=== PATIENT | female | born 1990 | race Caucasian/White ===

== ENCOUNTER 2017-03-27 11:28 | Emergency (ER) | payer BC ==
[~2017-03-27] VITALS: Ht 154.9 cm; Wt 59.0 kg
[~2017-03-27 11:28] MED LIST: AMX500 PO; MEDLIST
[2017-03-27 11:38] VITALS: Ht 154.9 cm; Wt 59.0 kg
[2017-03-27] MEDS ORDERED: SODIUM CHLORIDE 0.9% 1000ML 1,000 ML IV STA (13:50)
[2017-03-27] MEDS ORDERED: KETOROLAC TROMETHAMINE 30 MG/ML VIAL IV STA (13:50)
[2017-03-27] MEDS ORDERED: ONDANSETRON INJ 2 MG/ML 2 ML VIAL IV STA (13:50)
[2017-03-27 14:38] VITALS: TEMP 37.6
[2017-03-27 14:44] LABS: INFLUENZA B ANTIGEN Neg for Influ B (NEG)
[2017-03-27 14:52] LABS: ALBUMIN 4.1 gm/dl (3.4-5.0); CALCIUM 9.3 mg/dl (8.5-10.1); CREATININE 0.81 mg/dl (0.60-1.20); POTASSIUM 3.3 mmol/L (3.5-5.1)
[2017-03-27 15:35] LABS: BASO % 0.1 %; BASO ABS # 0.01 K/uL (0-0.2); HEMATOCRIT 40.7 % (37-47); HEMOGLOBIN 14.3 g/dL (12.0-16.0); IG# 0.03 K/uL (0.00-0.02); LYMPH ABS # 0.37 K/uL (1.2-3.4); MEAN CELL VOLUME 88.1 fL (80-100); MEAN CORPUSCULAR HGB CONC 35.1 g/dl (32-36); MEAN PLATELET VOLUME 9.9 fL (7.4-10.4); MONO % 3.9 %; MONO ABS # 0.36 K/uL (0.11-0.59); NEUT % 91.7 %; NEUT ABS # 8.49 K/uL (1.4-6.5); PLATELET COUNT 235 K/uL (130-400); RED CELL DISTRIBUTION WIDTH CV 12.2 % (11.5-14.5); WHITE BLOOD COUNT 9.26 K/uL (4.8-10.8)
[2017-03-27] MEDS ORDERED: ONDA4TAB10 SL (15:46)
--- NOTE | 2017-03-27 15:47 | EMERGENCY ROOM VISIT NOTE ---
History First contact with patient: 13:42 Chief Complaint: FLU LIKE SX Stated Complaint: V/D, NUMB HANDS/LEGS DEHYDRATED History of Present Illness The patient is a 26 year old female who presents to the Emergency Room with complaints of nausea vomiting and diarrhea that started at 5 AM this morning. The patient states for the past few days she has had cold symptoms of head congestion and runny nose. She denies any cough, ear pain or sore throat. She denies any fever. The patient also states that today she feels achy all over and her low back hurts. The patient states she has vomited at least 7 times and has had 7 loose movements. She has not been able to keep anything down. The patient denies any urinary symptoms of frequency, urgency, dysuria or hematuria. The patient denies any specific abdominal pain. Review of Systems 10 system review was performed and was negative unless stated otherwise history of present illness. Past Medical/Surgical History No significant Past medical history Social History Smoking Status: Former Smoker Alcohol Use: occasionally Marital Status: Housing Status: lives with family Occupation Status: employed Current/Historical Medications No Active Prescriptions or Reported Meds Physical Exam Vital Signs Date Time Temp Pulse Resp B/P (MAP) Pulse Ox O2 Delivery O2 Flow Rate FiO2 03/27/17 14:38 37.6 99 18 112/62 98 Room Air 03/27/17 14:00 37.6 107 18 111/66 97 Room Air 03/27/17 11:38 37.3 129 18 114/81 98 Physical Exam PHYSICAL EXAM: Vital Signs were reviewed: Temperature 37.3, blood pressure 114/ 81, pulse 129, respiratory rate 18 Reviewed Nurse's notes and agree. Oxygen saturation is 98 % on room air which is normal . GENERAL: 26-year-old female appears in no acute distress. MENTAL STATUS: Alert, oriented, coherent. EARS: Canals clear. TMs good light reflex, no erythema or fluid level noted. NOSE: Nasal mucosa with moderate erythema engorgement. PHARYNX: No erythema, no edema noted. No exudate noted. Airway is adequate. NECK: Supple, non-tender. No lymphadenopathy noted. LUNGS: Clear to auscultation without wheezes rales or rhonchi. CARDIAC: Regular rate and rhythm without murmur. BACK: No CVA tenderness noted. ABDOMEN: Positive bowel sounds all 4 quadrants soft, mild tenderness palpation in the left upper quadrant otherwise nontender without organomegaly or masses. SKIN: No rashes noted. Medical Decision & Procedures Laboratory Results 03/27/17 14:09 Red Blood Count 4.62, Mean Corpuscular Volume 88.1, Mean Corpuscular Hemoglobin 31.0, Mean Corpuscular Hemoglobin Concent 35.1, Mean Platelet Volume 9.9, Neutrophils (%) (Auto) 91.7, Lymphocytes (%) (Auto) 4.0, Monocytes (%) (Auto) 3.9, Eosinophils (%) (Auto) 0.0, Basophils (%) (Auto) 0.1, Neutrophils # (Auto) 8.49, Lymphocytes # (Auto) 0.37, Monocytes # (Auto) 0.36, Eosinophils # (Auto) 0.00, Basophils # (Auto) 0.01 03/27/17 14:09 Test 03/27/17 14:00 03/27/17 14:09 03/27/17 14:34 Influenza Type A Antigen Neg for Influ A (NEG) Influenza Type B Antigen Neg for Influ B (NEG) White Blood Count 9.26 K/uL (4.8-10.8) Red Blood Count 4.62 M/uL (4.2-5.4) Hemoglobin 14.3 g/dL (12.0-16.0) Hematocrit 40.7 % (37-47) Mean Corpuscular Volume 88.1 fL (80-100) Mean Corpuscular Hemoglobin 31.0 pg (25-34) Mean Corpuscular Hemoglobin Concent 35.1 g/dl (32-36) Platelet Count 235 K/uL (130-400) Mean Platelet Volume 9.9 fL (7.4-10.4) Neutrophils (%) (Auto) 91.7 % Lymphocytes (%) (Auto) 4.0 % Monocytes (%) (Auto) 3.9 % Eosinophils (%) (Auto) 0.0 % Basophils (%) (Auto) 0.1 % Neutrophils # (Auto) 8.49 K/uL (1.4-6.5) Lymphocytes # (Auto) 0.37 K/uL (1.2-3.4) Monocytes # (Auto) 0.36 K/uL (0.11-0.59) Eosinophils # (Auto) 0.00 K/uL (0-0.5) Basophils # (Auto) 0.01 K/uL (0-0.2) RDW Standard Deviation 39.0 fL (36.4-46.3) RDW Coefficient of Variation 12.2 % (11.5-14.5) Immature Granulocyte % (Auto) 0.3 % Immature Granulocyte # (Auto) 0.03 K/uL (0.00-0.02) Anion Gap 10.0 mmol/L (3-11) Est Creatinine Clear Calc Drug Dose 88.4 ml/min Estimated GFR () 117.8 Estimated GFR (Non- 101.7 BUN/Creatinine Ratio 15.6 (10-20) Calcium Level 9.3 mg/dl (8.5-10.1) Total Bilirubin 0.7 mg/dl (0.2-1) Direct Bilirubin 0.2 mg/dl (0-0.2) Aspartate Amino Transf (AST/SGOT) 17 U/L (15-37) Alanine Aminotransferase (ALT/SGPT) 19 U/L (12-78) Alkaline Phosphatase 54 U/L (45-117) Total Protein 8.0 gm/dl (6.4-8.2) Albumin 4.1 gm/dl (3.4-5.0) Lipase 102 U/L (73-393) Urine Color DK YELLOW Urine Appearance CLOUDY (CLEAR) Urine pH 5.5 (4.5-7.5) Urine Specific [place] 1.028 (1.000-1.030) Urine Protein NEG (NEG) Urine Glucose (UA) NEG (NEG) Urine Ketones 2+ (NEG) Urine Occult Blood NEG (NEG) Urine Nitrite NEG (NEG) Urine Bilirubin NEG (NEG) Urine Urobilinogen NEG (NEG) Urine Leukocyte Esterase TRACE (NEG) Urine WBC (Auto) 1-5 /hpf (0-5) Urine RBC (Auto) 0-4 /hpf (0-4) Urine Hyaline Casts (Auto) 1-5 /lpf (0-5) Urine Epithelial Cells (Auto) >30 /lpf (0-5) Urine Bacteria (Auto) NEG (NEG) Medications Administered Medications (Trade) Dose Ordered Sig/Carlos Alberto Route Start Time Stop Time Status Last Admin Dose Admin Sodium Chloride 1,000 ml @ 999 mls/hr Q1H1M STAT IV 03/27/17 13:50 03/27/17 14:50 DC 03/27/17 14:16 999 MLS/HR Ondansetron HCl (Zofran Inj) 4 mg NOW STAT IV 03/27/17 13:50 03/27/17 13:52 DC 03/27/17 14:15 4 MG Ketorolac Tromethamine (Toradol Inj) 30 mg NOW STAT IV 03/27/17 13:50 03/27/17 13:52 DC 03/27/17 14:15 30 MG ED Course The patient was evaluated. The patient's EMR medication list were reviewed. IV access was obtained. The patient was given 1 L normal saline wide-open. She was given Zofran 4 mg IV push for nausea and Toradol 30 mg IV for pain and body aches. CBC and differential, renal profile, LFTs and lipase levels were ordered. Urinalysis was ordered. Rapid influenza was negative for influenza A and influenza B. Urinalysis was negative. Labs are reviewed. White count was normal. The patient's potassium was slightly low at 3.3. The patient was reevaluated informed of all findings. She was feeling much better. She was able to drink some water without any vomiting. The patient was discharged home in stable condition. Medical Decision Differential diagnosis include viral gastroenteritis, influenza, bronchitis [place] Drug Monitoring Program Search Results: patient reviewed within database Medication Reconcilliation Current Medication List: was personally reviewed by me Blood Pressure Screening Patient's blood pressure: Normal blood pressure Impression Primary Impression: Viral gastroenteritis Additional Impression: Hypokalemia Departure Information Dispostion Home / Self-Care Condition GOOD Prescriptions Ondasetron Odt (ZOFRAN ODT) 4 Mg Tab 4 MG SL Q6H for Nausea, #10 TAB Prov: Mellisa Brizuela, PASulema 03/27/17 Referrals No Doctor, Assigned (PCP) Forms HOME CARE DOCUMENTATION FORM, IMPORTANT VISIT INFORMATION Patient Instructions ED Diet [place], ED Nausea Vomiting, My [facility] Additional Instructions Push fluids. Follow bland diet. Advance diet slowly as tolerated. Take Zofran as needed for nausea. Eat a banana daily for 1 week. Follow-up with your family doctor in 1 week for recheck of your potassium. If symptoms worsen in the interim, return to ER. Problem Qualifiers
[2017-03-27 15:59] VITALS: BP 108/59; PULSE 98; O2SAT 96
== END 2017-03-27 16:01 | disposition home or self-care (01) ==
LOC: C.EDB 11:31
DX: A08.4 Viral intestinal infection, unspecified (principal); E87.6 Hypokalemia; Z87.891 Personal history of nicotine dependence

== ENCOUNTER 2019-09-30 13:34 | Inpatient (IN) ==
[2019-09-30] MEDS ORDERED: OXYTOCIN 30 UNITS/500 ML BAG IV PRN (15:10)
[2019-09-30] MEDS ORDERED: PENICILLIN G POTASSIUM 6 MU in DEXTROSE 5% 250 ML IV ONE (15:30)
--- NOTE | 2019-09-30 15:33 | Obstetrical Progress Note ---
Date of Service September 30, 2019 Assessment & Plan Admission and Anticipated Discharge Date Admission Date: September 30, 2019 Subjective Met pt and family Reviewed PNC SROM at 1200HRS today FHR; CAT1 Ctx; Minimal VE; 1-/-2 Bedside sono; VT
[2019-09-30 15:35] LABS: Hematocrit (blood only) 35.7 % (37-47); Hemoglobin 11.8 g/dL (12.0-16.0); Mean Corpuscular Hemoglobin 30.3 pg (25-34); Mean Corpuscular Volume 91.8 fL (80-100); Mean Platelet Volume 10.3 fL (7.4-10.4); Platelet Count 191 K/uL (130-400); RDW Coefficient of Variation 13.9 % (11.5-14.5); RDW Standard Deviation 45.8 fL (36.4-46.3); Red Blood Count 3.89 M/uL (4.2-5.4); White Blood Count 11.91 K/uL (4.8-10.8)
[2019-09-30] MEDS: LACTATED RINGER'S 1,000 ML IV PRN (15:42)
[2019-09-30 16:07] LABS: Mean Corpuscular Hgb Conc 33.1 g/dL (32-36)
[2019-09-30] MEDS: OXYTOCIN 30 UNITS/500 ML BAG IV PRN (17:29)
[2019-09-30] MEDS ORDERED: ACETAMINOPHEN 500 MG TAB PO ONE ×2 (18:03→23:14)
[2019-09-30] MEDS: PENICILLIN G POTASSIUM 3 MU in DEXTROSE 5% 100 ML IV PRN (21:02)
[2019-10-01] MEDS: PENICILLIN G POTASSIUM 3 MU in DEXTROSE 5% 100 ML IV PRN ×5 (01:18→17:35)
[2019-10-01] MEDS: LACTATED RINGER'S 1,000 ML IV PRN ×2 (02:40→12:28)
--- NOTE | 2019-10-01 07:21 | Obstetrical Progress Note ---
Date of Service October 01, 2019 Assessment & Plan Admission and Anticipated Discharge Date Admission Date: September 30, 2019 Subjective Pt doing well SROM 09/30/19 @ Noon FHR; CAT1 Ctx; 1-2mins Pit; 20My VE 2/50/-2 Unchanged Forebag palpated during exam and snagged with amnio hook Plan D/c Pitocin Feed pt Restart pitocin later Results & Data ([facility]) Vital Signs (Past 12 Hours) Vital Signs Temp Pulse Resp BP 10/01/19 05:32 75 111/62 10/01/19 05:31 36.9 C 18 10/01/19 03:51 85 126/68 10/01/19 03:50 36.6 C 10/01/19 02:40 72 121/71 10/01/19 02:05 36.8 C 18 10/01/19 00:38 84 112/66 09/30/19 23:52 36.9 C 83 18 122/72 09/30/19 22:44 86 103/64 09/30/19 21:31 36.6 C 75 99/51 L 09/30/19 20:32 94 H 112/61 09/30/19 19:35 36.9 C 80 18 108/65
[2019-10-01] MEDS: OXYTOCIN 30 UNITS/500 ML BAG IV PRN (09:21)
[2019-10-01] MEDS ORDERED: Nursing to Pharmacy Communication SCH (15:00)
[2019-10-01] MEDS ORDERED: ePHEDrine sulfate 50 MG/ML AMP ONE (18:02)
[2019-10-01] MEDS ORDERED: BUPIVACAINE 0.25% 30 ML VIAL ONE (18:03)
[2019-10-01] MEDS ORDERED: fentaNYL citrate 100 MCG/2 ML VIAL ONE ×2 (18:03→20:31)
[2019-10-01] MEDS ORDERED: fentaNYL 2MCG/ML ROPIV 1.25MG/ML 100 ML BAG EPI ONE (18:04)
[2019-10-01] MEDS ORDERED: NALOXONE HCL 0.4 MG/1 ML VIAL/CARP IV PRN ×2 (18:21→19:54)
[2019-10-01] MEDS ORDERED: ePHEDrine sulfate 50 MG/ML AMP IV PRN ×2 (18:21→19:54)
[2019-10-01] MEDS ORDERED: DiphenhydrAMINE HCL 50 MG/ML VIAL IV PRN ×2 (18:21→19:54)
[2019-10-01] MEDS ORDERED: fentaNYL 2MCG/ML ROPIV 1.25MG/ML 100 ML BAG EPI PRN (18:21)
[2019-10-01] MEDS ORDERED: ONDANSETRON INJ 2 MG/ML 2 ML VIAL IV PRN ×2 (18:21→19:54)
[2019-10-01] MEDS ORDERED: NALOXONE HCL 1 MG in SODIUM CHLORIDE 0.9% 1000ML 1,000 ML IV PRN ×2 (18:21→19:54)
--- NOTE | 2019-10-01 18:27 | Anesthesiology Consultation ---
Date of Service October 01, 2019 Covid 19 negative on 09/25/19. Assessment & Plan Chart Review Chart Review: Patient NOT seen in Pre Admission Testing and Acceptable Risk for Labor Epidural Consults Requested none ASA ASA2 Proposed Anesthesia Anesthesia Type: Labor Epidural and CSE Risk / Benefits Reviewed With: PT / POA / Parent / Guardian, Accepts Plan and Informed Consent Obtained History Height/Weight Height: 5 ft 1 in Weight: 87.09 kg Allergies Allergy/AdvReac Type Severity Reaction Status Date / Time No Known Allergies Allergy Verified 09/30/19 14:24 Medications Home Medications Medication Instructions Recorded Confirmed Last Taken multivitamin 1 tab PO HS 09/12/18 09/30/19 09/29/19 21:00 Active Medications Generic Name Dose Route Start Last Admin Trade Name Freq PRN Reason Stop Dose Admin Lactated Ringer's 1,000 mls @ 125 mls/hr 09/30/19 15:10 10/01/19 12:28 Lr IV 10/02/19 15:09 125 mls/hr .Q8H PRN Administration L&D Protocol Protocol Penicillin G Potassium 3 mu/ 106 mls @ 100 mls/hr 09/30/19 19:30 10/01/19 17:35 Dextrose IV 10/10/19 19:29 106 mls/hr Q4H PRN Administration Give until delivery Oxytocin 30 units in 500 mls @ 28 mls/hr 09/30/19 15:22 10/01/19 16:30 Pitocin IV 10/02/19 15:21 1.68 units/hr .[id number] PRN 28 mls/hr Labor Induction/Augmentation Titration Protocol 1.68 UNITS/HR NPO Date Last Intake of Fluids: 10/01/19 Time Last Intake of Fluids: 17:00 Date Last Intake of Solids: 10/01/19 Time Last Intake of Solids: 08:00 Past Medical History Medical History Depression (Chronic) Panic attacks (Acute) Exercise / Class Metabolic Activity II 4-5 Yardwork/Stairs/Walk up hill Past Family History Family History Grandmother Hypertension Hyperlipemia Grandfather Hypertension Hyperlipemia Grandmother Rectal cancer Myocardial infarction Aunt FHx: migraine headaches Other Anemia Past Surgical History Surgical History History of tonsillectomy Status post myringotomy with insertion of tube Past Anesthesia History No Hx of Anesthesia Complications and No Family Hx of Anesthesia Complications History of PONV No Hx of PONV and No Hx of Motion Sickness Social History Smoking Status: Never smoker Hx Alcohol Use: No Hx Substance Use: No Review of Systems no chest pain or sob Physical Exam Vital Signs Last Vital Signs Temp 37.0 C 10/01/19 17:11 Pulse 87 10/01/19 18:20 Resp 20 10/01/19 17:11 BP 130/79 10/01/19 18:11 Pulse Ox 100 10/01/19 18:20 ENMT Mouth: no TMJ abnormality Thyromental Distance: > or= 3.5 Finger Breadths Mallampati Class: II Neck normal visual inspection Respiratory normal respiratory effort Auscultation: lungs clear to auscultation bilaterally Cardiovascular Rate/Rhythm: regular rate and regular rhythm Musculoskeletal Spine: normal cervical ROM Neurologic moves all extremities Psychiatric Orientation: alert and oriented x 3 Testing Laboratory Results 09/30/19 15:24
[2019-10-01] MEDS ORDERED: CITRIC ACID/SODIUM CITRATE 15 ML UDC ONE (19:53)
[2019-10-01] MEDS ORDERED: HYDROmorphone INJ 0.5 MG/0.5 ML SYR IV PRN (19:54)
[2019-10-01] MEDS ORDERED: NALOXONE HCL 0.08 MG in SYRINGE 1.8 ML IV PRN (19:54)
[2019-10-01] MEDS ORDERED: MoRPHine SULFATE PF 1 MG/ML 10 ML AMP/VIAL EPI ONE (19:54)
[2019-10-01] MEDS ORDERED: LACTATED RINGER'S 500 ML IV PRN (19:54)
[2019-10-01] MEDS ORDERED: MoRPHine SULFATE PF 1 MG/ML 10 ML AMP/VIAL ONE (19:59)
[2019-10-01] MEDS ORDERED: LIDOCAINE/EPINEPHRINE 2% 1:200,000 20 ML SDV ONE (19:59)
[2019-10-01] MEDS ORDERED: OXYTOCIN 10 UNITS/ML VIAL ONE ×2 (19:59→20:40)
[2019-10-01] MEDS ORDERED: NO NARCOTICS OR SEDATIVES SCH (20:00)
[2019-10-01] MEDS ORDERED: cefOXitin 2,000 MG in DEXTROSE 5% 50 ML IV SCH (20:00)
[2019-10-01] MEDS ORDERED: SODIUM CHLORIDE 0.9% 1000ML 1,000 ML IV SCH (20:00)
[2019-10-01 20:02] LABS: Basophils # (auto) 0.01 K/uL (0-0.2); Basophils % (auto) 0.1 %; Eosinophils # (auto) 0.09 K/uL (0-0.5); Eosinophils % (auto) 0.6 %; Hematocrit (blood only) 33.6 % (37-47); Hemoglobin 11.4 g/dL (12.0-16.0); Immature Granulocytes # (auto) 0.05 K/uL (0.00-0.02); Immature Granulocytes % (auto) 0.4 %; Lymphocytes # (auto) 1.73 K/uL (1.2-3.4); Lymphocytes % (auto) 12.4 %; Mean Corpuscular Hemoglobin 30.6 pg (25-34); Mean Corpuscular Volume 90.1 fL (80-100); Mean Platelet Volume 10.5 fL (7.4-10.4); Monocytes % (auto) 6.4 %; Neutrophils # (auto) 11.19 K/uL (1.4-6.5); Neutrophils % (auto) 80.1 %; Platelet Count 159 K/uL (130-400); RDW Coefficient of Variation 13.9 % (11.5-14.5); RDW Standard Deviation 45.9 fL (36.4-46.3); Red Blood Count 3.73 M/uL (4.2-5.4); White Blood Count 13.97 K/uL (4.8-10.8)
[2019-10-01 20:06] LABS: Mean Corpuscular Hgb Conc 33.9 g/dL (32-36)
[2019-10-01] MEDS ORDERED: PHENYLEPHRINE 100MCG/ML 5ML SYR ONE (20:44)
[2019-10-01] MEDS ORDERED: MAGNESIUM HYDROXIDE SUSP 30 ML UDC PO PRN (21:35)
[2019-10-01] MEDS ORDERED: HYDROCORTISONE ACETATE 25 MG SUPP PR PRN (21:35)
[2019-10-01] MEDS ORDERED: BENZOCAINE 20% AER SPR 82.5 GM CAN EXT PRN (21:35)
[2019-10-01] MEDS ORDERED: DIPHTHERIA/TETANUS/PERTUSSIS 0.5 ML SYR/VIAL IM ONE (21:35)
[2019-10-01] MEDS ORDERED: SUPERCREAM 0.870% 15 GM JAR EXT PRN (21:35)
[2019-10-01] MEDS ORDERED: SENNA 8.6 MG TAB PO PRN (21:35)
--- NOTE | 2019-10-01 21:35 | Post Operative Brief Note ---
Immediate Post Op Note v1 Date of Surgery October 01, 2019 Pre & Post Diagnosis Operation Date: 10/01/19 19:35 Pre-Op Diagnosis: 1.Ruptured membranes 36 hours 2. Cephalopelvic disproportion. Post-Op Diagnosis: 1.Ruptured membranes 36 hours 2. Cephalopelvic disproportion. I identified the patient and participated in the time-out.: Yes Procedure Operation Date: 10/01/19 19:35 Actual Procedures p lower uterine transverse section. Live male child at 2030. - Jonh Ramirez MD Surgeon Jonh Ramirez MD Authorization Nurse Dr Mckinney Estimated Blood Loss 600 Findings Consistent with Post-Op Diagnosis Fluids 1200 ml Specimens placenta Drains Pleitez Catheter Anesthesia Type MAC Epidural Disposition Accompanied Patient To Recovery: No Disposition: Recovery Room
[2019-10-01] MEDS: OXYTOCIN 20 UNITS in LACTATED RINGER'S 1,000 ML IV SCH (22:16)
[2019-10-01] MEDS: KETOROLAC 30 MG/ML VIAL IV PRN (22:22)
--- NOTE | 2019-10-01 22:53 | History and Physical Report ---
DATE OF ADMISSION: 10/01/2019 CHIEF COMPLAINT: Macrosomia, ruptured of membranes over 36 hours, cephalopelvic disproportion. HISTORY OF PRESENT ILLNESS: The patient is a 28-year-old 1, para 0. Her due date is 10/05/2019. She has had no problems. She had an ultrasound done on 09/25/2019 with an estimated weight was over 8.5 pounds. She was admitted to the hospital at 12:00 noon on 09/29/2019 with yann rupture of membranes. She was started on Pitocin. She got no effect, she was rested. She was restarted on Pitocin, this time she got a good strong contractions. Eventually she went to epidural; however, she had an arrest of labor at 4 cm with the cervix 100% effaced, despite having good contractions, no change in over 6 hours. Presently being scheduled for section due to cephalopelvic disproportion and ruptured membranes for over 36 hours. PAST MEDICAL HISTORY: ALLERGIES: No known drug allergies. PAST SURGICAL HISTORY: Had T&A. MEDICAL HISTORY: No history of rheumatic fever, heart disease, heart murmur, diabetes, tuberculosis. SOCIAL HISTORY: No smoking. No excessive alcohol intake. Works at [employer]. FAMILY HISTORY: Mom is 50 in good health. Father 50 in good health. Three sisters, 1 sister has Down syndrome. REVIEW OF SYSTEMS: She had migraine headaches prior to getting . PHYSICAL EXAMINATION: GENERAL: Well-developed, well-nourished 28-year-old white female, alert, oriented x3 and cooperative, no acute distress, appeared her stated age. EYES: Conjunctivae are pink. Sclerae white, no evidence of jaundice. EARS: Had normal light reflex bilaterally. NOSE: Had normal mucosa. Septum is midline. There were no polyps. THROAT: No erythema or evidence of infection. Teeth are in good state of repair. HEAD: Normocephalic, normal distribution of hair. NECK: Supple. Trachea midline. Thyroid is not enlarged. There were no adenopathy appreciated. Both carotids are of good intensity. CHEST: Clear to auscultation and percussion. No wheezes, rales or rhonchi appreciated. HEART: Had regular rhythm. S1, S2 are normal. BREASTS: Normal. ABDOMEN: Soft and nontender. Estimated weight was over 8 pounds. PELVIC: Cervix 100% effaced, 3+ cm dilated, -2 station, vertex presentation. MUSCULOSKELETAL: No calf tenderness. IMPRESSIONS OF THIS CASE: Macrosomia, ruptured membranes for over 36 hours, cephalopelvic disproportion.
--- NOTE | 2019-10-01 23:06 | Operative Report (OR) ---
DATE OF OPERATION: 10/01/2019 PROCEDURE: Primary low segment section. INDICATIONS FOR SURGERY: Ruptured membranes for 36 hours, cephalopelvic disproportion. PREOPERATIVE DIAGNOSES: Ruptured membranes for 36 hours, cephalopelvic disproportion. POSTOPERATIVE DIAGNOSES: Delivered a live male infant. SURGEON: Ly Ramirez MD VENTILATOR SPECIALIST: Paulino Mckinney MD ANESTHESIA: Epidural. ESTIMATED BLOOD LOSS: 600 mL. OPERATIVE FINDINGS AND PROCEDURE: The patient was brought to the OR table, correctly identified by armband and conversation. Epidural anesthesia was topped off. Pleitez catheter was inserted aseptically in the bladder, connected to gravity drainage. Compression stockings were applied. Lower abdomen was painted with an alcohol based sterilizing solution, draped in usual sterile fashion. Adequacy of the anesthesia was checked. A Pfannenstiel incision was made, carried down to the anterior fascia by sharp dissection. Hemostasis was secured by electrocauterization. Fascia was incised transversely from the muscle by blunt and sharp dissection. Recti muscles were in the midline. Peritoneum was carefully raised and entered. Lower uterine segment was exposed. The head was palpated. We made an incision above the vesicouterine fold. Bladder was pushed out of the operative field. Lower uterine segment was scored with a knife, then entered with the scissors. Incision was extended laterally with the fingers. Cocktail Waitress's hand was inserted in the uterine cavity, a vectis retractor was applied, fundal pressure, was delivered. was breathing and cried spontaneously, was attended to by the double spindle shaper operator, Dr. Gupta who was present and scrubbed at the time of delivery. Cord was clamped and cut. Cord blood was taken. Placenta was removed manually. Uterus, tubes, and ovary were brought out through the incision. Uterine cavity was cleansed with a clean sponge. Ten units of Pitocin was injected into the myometrium. Then the myometrial defect was approximated in 2 layers. Muscular layer was approximated with a heavy chromic gut suture. Fascial layer was approximated over this with a heavy duty suture of Vicryl. Hemostasis was excellent. The bladder edges were restored with a continuous 3-0 chromic. The pelvis was cleansed of all blood clots and debris. Uterus, tubes, and ovaries were inspected and found to be normal. They were reinserted into the pelvic cavity. Careful anatomical approximation of the anterior abdominal wall was performed. Peritoneum was closed with a mattress suture of chromic catgut. Recti muscles approximated with interrupted [id number] suture of chromic catgut. The fascia was closed with continuous interlocking suture of Vicryl on each side, tied in the midline. SubQ was approximated with running plain and skin edges were approximated with staple clips. The patient tolerated these procedures well and left the OR in good condition. I attest to the content of the Intraoperative Record and any orders documented therein. Any exceptions are noted below. ESE
--- NOTE | 2019-10-02 00:08 | Anesthesiology Progress Note ---
Date of Service October 02, 2019 Anesthesia Post Procedure Vital Signs Vital Signs: Temp Pulse Resp BP Pulse Ox 10/02/19 00:00 107 H 88 L 10/01/19 23:57 84 117/63 98 10/01/19 23:52 80 97 10/01/19 23:47 81 109/57 L 97 10/01/19 23:42 81 98 10/01/19 23:37 83 112/59 L 98 10/01/19 23:32 79 99 10/01/19 23:27 85 112/59 L 99 10/01/19 23:22 80 99 10/01/19 23:17 78 116/59 L 99 10/01/19 23:12 86 98 10/01/19 23:08 81 117/55 L 10/01/19 23:07 84 98 10/01/19 23:02 83 99 10/01/19 22:58 18 10/01/19 22:57 89 98 10/01/19 22:52 87 99 10/01/19 22:47 90 98/55 L 99 10/01/19 22:42 91 H 99 10/01/19 22:41 88 118/50 L 10/01/19 22:38 187 H 238/148 H 10/01/19 22:37 89 98 10/01/19 22:32 91 H 97 10/01/19 22:28 18 10/01/19 22:27 84 98 10/01/19 22:22 82 97 10/01/19 22:18 80 18 99/53 L 10/01/19 22:17 78 98 10/01/19 22:12 78 98 10/01/19 22:08 18 10/01/19 22:07 72 87/50 L 97 10/01/19 22:02 72 97 10/01/19 21:58 71 18 87/49 L 10/01/19 21:57 73 98 10/01/19 21:52 84 100 10/01/19 21:48 86 18 92 10/01/19 21:47 84 99 10/01/19 21:42 83 99 10/01/19 21:38 36.7 C 101 H 18 112/56 L 10/01/19 21:37 95 H 81 L 10/01/19 20:25 92 H 100 10/01/19 20:24 90 106/71 10/01/19 20:20 89 100 10/01/19 20:15 86 100 10/01/19 20:10 87 100 10/01/19 20:09 93 H 107/58 L 10/01/19 20:05 85 100 10/01/19 20:00 83 100 10/01/19 19:55 90 128/72 100 10/01/19 19:50 88 100 10/01/19 19:45 86 100 10/01/19 19:40 78 100 10/01/19 19:39 76 107/73 10/01/19 19:35 86 100 10/01/19 19:30 84 100 10/01/19 19:25 77 100 10/01/19 19:23 77 101/56 L 10/01/19 19:20 78 100 10/01/19 19:16 36.6 C 80 18 109/58 L 10/01/19 19:15 85 100 10/01/19 19:11 79 105/58 L 10/01/19 19:10 84 100 10/01/19 19:06 80 100/55 L 10/01/19 19:05 81 100 10/01/19 19:02 78 105/58 L 10/01/19 19:00 81 100 10/01/19 18:58 81 100/54 L 10/01/19 18:55 82 100 10/01/19 18:50 89 102/52 L 100 10/01/19 18:48 90 103/55 L 10/01/19 18:46 85 101/53 L 10/01/19 18:45 86 100 10/01/19 18:44 98 H 105/60 10/01/19 18:42 94 H 101/57 L 10/01/19 18:40 92 H 102/52 L 100 10/01/19 18:39 105 H 118/53 L 10/01/19 18:37 120/59 L 10/01/19 18:35 98 H 100 10/01/19 18:34 90 130/73 10/01/19 18:30 97 H 100 10/01/19 18:25 96 H 100 10/01/19 18:20 87 100 10/01/19 18:11 82 130/79 10/01/19 17:11 37.0 C 79 20 120/69 10/01/19 16:04 80 110/64 07/29/20 14:55 36.9 C 78 20 122/77 10/01/19 13:37 36.8 C 85 20 116/60 10/01/19 12:27 95 H 131/62 10/01/19 11:24 36.9 C 88 20 114/59 L 10/01/19 10:24 98 H 115/62 10/01/19 09:16 37.0 C 80 20 122/65 10/01/19 07:37 72 120/71 10/01/19 07:36 36.9 C 20 10/01/19 05:32 75 111/62 10/01/19 05:31 36.9 C 18 10/01/19 03:51 85 126/68 10/01/19 03:50 36.6 C 10/01/19 02:40 72 121/71 10/01/19 02:05 36.8 C 18 10/01/19 00:38 84 112/66 Pain Intensity Abdomen: Pain Intensity: 1 Transfer of Care Handoff Completed per policy Notes Mental Status: alert / awake / arousable Patient Amnestic to Procedure: Yes Nausea / Vomiting: adequately controlled Pain: adequately controlled Airway Patency, RR, SpO2: stable & adequate BP & HR: stable & adequate Hydration State: stable & adequate Neuraxial Anesthesia: was administered and sensory block is resolving Anesthetic Complications: no major complications apparent and Pt Satisfied with anesthetic care
[2019-10-02] MEDS: KETOROLAC 30 MG/ML VIAL IV PRN ×2 (04:06→10:27)
[2019-10-02] MEDS ORDERED: CITRIC ACID/SODIUM CITRATE 15 ML UDC PO SCH (06:00)
[2019-10-02] MEDS: OXYTOCIN 20 UNITS in LACTATED RINGER'S 1,000 ML IV SCH (06:31)
[2019-10-02 06:39] LABS: Basophils # (auto) 0.01 K/uL (0-0.2); Basophils % (auto) 0.1 %; Eosinophils # (auto) 0.05 K/uL (0-0.5); Eosinophils % (auto) 0.5 %; Hematocrit (blood only) 27.5 % (37-47); Hemoglobin 9.4 g/dL (12.0-16.0); Immature Granulocytes # (auto) 0.04 K/uL (0.00-0.02); Immature Granulocytes % (auto) 0.4 %; Lymphocytes # (auto) 1.51 K/uL (1.2-3.4); Lymphocytes % (auto) 14.1 %; Mean Corpuscular Hemoglobin 31.2 pg (25-34); Mean Corpuscular Hgb Conc 34.2 g/dL (32-36); Mean Corpuscular Volume 91.4 fL (80-100); Mean Platelet Volume 9.8 fL (7.4-10.4); Monocytes # (auto) 0.75 K/uL (0.11-0.59); Neutrophils # (auto) 8.33 K/uL (1.4-6.5); Neutrophils % (auto) 77.9 %; Platelet Count 145 K/uL (130-400); RDW Coefficient of Variation 13.9 % (11.5-14.5); RDW Standard Deviation 46.2 fL (36.4-46.3); Red Blood Count 3.01 M/uL (4.2-5.4); White Blood Count 10.69 K/uL (4.8-10.8)
[2019-10-02] MEDS ORDERED: LACTATED RINGER'S 1,000 ML IV SCH (08:00)
[2019-10-02] MEDS ORDERED: FERROUS SULFATE 325 MG TAB PO SCH (08:00)
--- NOTE | 2019-10-02 08:43 | Obstetrical Progress Note ---
Date of Service October 02, 2019 Assessment & Plan Admission and Anticipated Discharge Date Admission Date: September 30, 2019 Subjective Patient is seen and examined. She feels well, no complaints. Pain is under control with meds. Not OOB yet Tolerating clear diet with out N&V Flatus neg BM neg Bleeding is minimal No fever/ chills/ CP/ SOB/ N&V/ Leg pain Breast feeding without problems Vital Signs Temp Pulse Pulse Resp BP BP Pulse Ox 10/02/19 07:49 36.9 C 90 18 109/69 94 10/02/19 06:30 16 95 10/02/19 05:25 16 94 10/02/19 05:10 16 96 10/02/19 04:25 16 97 10/02/19 03:55 36.8 C 83 16 115/66 96 10/02/19 02:40 16 97 10/02/19 02:15 16 97 10/02/19 01:35 16 96 10/02/19 01:10 16 97 10/02/19 00:10 37.1 C 93 H 16 135/76 96 10/02/19 00:00 107 H 88 L 10/01/19 23:57 84 117/63 98 10/01/19 23:52 80 97 10/01/19 23:47 81 109/57 L 97 10/01/19 23:42 81 98 10/01/19 23:38 36.9 C 18 10/01/19 23:37 83 112/59 L 98 10/01/19 23:32 79 99 10/01/19 23:27 85 112/59 L 99 10/01/19 23:22 80 99 10/01/19 23:17 78 116/59 L 99 10/01/19 23:12 86 98 10/01/19 23:08 81 117/55 L 10/01/19 23:07 84 98 10/01/19 23:02 83 99 10/01/19 22:58 18 10/01/19 22:57 89 98 10/01/19 22:52 87 99 10/01/19 22:47 90 98/55 L 99 10/01/19 22:42 91 H 99 10/01/19 22:41 88 118/50 L 10/01/19 22:38 187 H 238/148 H 10/01/19 22:37 89 98 10/01/19 22:32 91 H 97 10/01/19 22:28 18 10/01/19 22:27 84 98 10/01/19 22:22 82 97 10/01/19 22:18 80 18 99/53 L 10/01/19 22:17 78 98 10/01/19 22:12 78 98 10/01/19 22:08 18 10/01/19 22:07 72 87/50 L 97 10/01/19 22:02 72 97 10/01/19 21:58 71 18 87/49 L 10/01/19 21:57 73 98 10/01/19 21:52 84 100 10/01/19 21:48 86 18 92 10/01/19 21:47 84 99 10/01/19 21:42 83 99 10/01/19 21:38 36.7 C 101 H 18 112/56 L 10/01/19 21:37 95 H 81 L Lab Results 09/30/19 10/01/19 10/02/19 Range/Units 15:24 19:54 06:17 WBC 11.91 H 13.97 H 10.69 (4.8-10.8) K/uL RBC 3.89 L 3.73 L 3.01 L (4.2-5.4) M/uL Hgb 11.8 L 11.4 L 9.4 L (12.0-16.0) g/dL Hct 35.7 L 33.6 L 27.5 L (37-47) % MCV 91.8 90.1 91.4 (80-100) fL MCH 30.3 30.6 31.2 (25-34) pg MCHC 33.1 33.9 34.2 (32-36) g/dL RDW Std Deviation 45.8 45.9 46.2 (36.4-46.3) fL RDW Coeff of Sergio 13.9 13.9 13.9 (11.5-14.5) % Plt Count 191 159 145 (130-400) K/uL MPV 10.3 10.5 H 9.8 (7.4-10.4) fL Immature Gran % (Auto) 0.4 0.4 % Neut % (Auto) 80.1 77.9 % Lymph % (Auto) 12.4 14.1 % [place] % (Auto) 6.4 7.0 % Eos % (Auto) 0.6 0.5 % Baso % (Auto) 0.1 0.1 % Neut # (Auto) 11.19 H 8.33 H (1.4-6.5) K/uL Lymph # (Auto) 1.73 1.51 (1.2-3.4) K/uL [place] # (Auto) 0.90 H 0.75 H (0.11-0.59) K/uL Eos # (Auto) 0.09 0.05 (0-0.5) K/uL Baso # (Auto) 0.01 0.01 (0-0.2) K/uL Immature Gran # (Auto) 0.05 H 0.04 H (0.00-0.02) K/uL PE: General: Alert, orientedx3, NAD CVS: S1S2 RRR Lungs; CTAB Abd: soft, NT, ND, BS+, fundus firm, below Umbilicus Incision/ Dressing: Clean, dry, intact Perineum intact, Lochia rubra minimal Ext; NT, SCD's on AP: 28 yo s/p C Section, pod# 1 VSS Afebrile doing well Continue routine postop care Encourage ambulation, PO intake All questions were answered Results & Data ([facility]) Vital Signs (Past 12 Hours) Vital Signs Temp Pulse Pulse Resp BP BP Pulse Ox 10/02/19 07:49 36.9 C 90 18 109/69 94 10/02/19 06:30 16 95 10/02/19 05:25 16 94 10/02/19 05:10 16 96 10/02/19 04:25 16 97 10/02/19 03:55 36.8 C 83 16 115/66 96 10/02/19 02:40 16 97 10/02/19 02:15 16 97 10/02/19 01:35 16 96 10/02/19 01:10 16 97 10/02/19 00:10 37.1 C 93 H 16 135/76 96 10/02/19 00:00 107 H 88 L 10/01/19 23:57 84 117/63 98 10/01/19 23:52 80 97 10/01/19 23:47 81 109/57 L 97 10/01/19 23:42 81 98 10/01/19 23:38 36.9 C 18 10/01/19 23:37 83 112/59 L 98 10/01/19 23:32 79 99 10/01/19 23:27 85 112/59 L 99 10/01/19 23:22 80 99 10/01/19 23:17 78 116/59 L 99 10/01/19 23:12 86 98 10/01/19 23:08 81 117/55 L 10/01/19 23:07 84 98 10/01/19 23:02 83 99 10/01/19 22:58 18 10/01/19 22:57 89 98 10/01/19 22:52 87 99 10/01/19 22:47 90 98/55 L 99 10/01/19 22:42 91 H 99 10/01/19 22:41 88 118/50 L 10/01/19 22:38 187 H 238/148 H 10/01/19 22:37 89 98 10/01/19 22:32 91 H 97 10/01/19 22:28 18 10/01/19 22:27 84 98 10/01/19 22:22 82 97 10/01/19 22:18 80 18 99/53 L 10/01/19 22:17 78 98 10/01/19 22:12 78 98 10/01/19 22:08 18 10/01/19 22:07 72 87/50 L 97 10/01/19 22:02 72 97 10/01/19 21:58 71 18 87/49 L 10/01/19 21:57 73 98 10/01/19 21:52 84 100 10/01/19 21:48 86 18 92 10/01/19 21:47 84 99 10/01/19 21:42 83 99 10/01/19 21:38 36.7 C 101 H 18 112/56 L 10/01/19 21:37 95 H 81 L
[2019-10-02] MEDS: FERROUS SULFATE 325 MG TAB PO SCH (09:53)
[2019-10-02] MEDS: SIMETHICONE 80 MG CHEW PO SCH ×3 (09:53→19:54)
[2019-10-02] MEDS: PRENATAL VITAMIN 1 TAB PO SCH (09:53)
[2019-10-02] MEDS: DOCUSATE SODIUM 100 MG CAP PO SCH ×2 (09:54→19:55)
[2019-10-02] MEDS ORDERED: ZOLPIDEM TARTRATE 5 MG TAB PO PRN (13:55)
[2019-10-02] MEDS ORDERED: ONDANSETRON INJ 2 MG/ML 2 ML VIAL IV PRN (13:55)
[2019-10-02] MEDS ORDERED: PROMETHAZINE HCL 25 MG in SODIUM CHLORIDE 0.9% 50 ML IV PRN (13:55)
[2019-10-02] MEDS ORDERED: KETOROLAC 30 MG/ML VIAL IV PRN (13:55)
[2019-10-02] MEDS ORDERED: MEPERIDINE HCL 50 MG/ML CARP IV PRN (13:55)
[2019-10-02] MEDS ORDERED: DC INTRASPINAL MORPHINE ONE (13:55)
[2019-10-02] MEDS ORDERED: DiphenhydrAMINE HCL 50 MG/ML VIAL IV PRN (13:55)
[2019-10-02] MEDS: OXYCODONE/ACETAMINOPHEN 5mg/325mg TAB PO PRN ×2 (16:57→22:07)
[2019-10-02] MEDS: IBUPROFEN 600 MG TAB PO PRN ×2 (16:57→22:07)
[2019-10-02] MEDS ORDERED: bisacodyL 5 MG TABEC PO SCH (20:00)
[2019-10-03 06:44] LABS: Hematocrit (blood only) 27.3 % (37-47); Hemoglobin 9.1 g/dL (12.0-16.0)
[2019-10-03] MEDS: OXYCODONE/ACETAMINOPHEN 5mg/325mg TAB PO PRN ×2 (06:51→12:12)
[2019-10-03] MEDS: IBUPROFEN 600 MG TAB PO PRN ×2 (06:52→12:12)
[2019-10-03] MEDS: FERROUS SULFATE 325 MG TAB PO SCH (07:59)
[2019-10-03] MEDS: PRENATAL VITAMIN 1 TAB PO SCH (07:59)
[2019-10-03] MEDS: DOCUSATE SODIUM 100 MG CAP PO SCH (07:59)
[2019-10-03] MEDS: SIMETHICONE 80 MG CHEW PO SCH ×2 (07:59→13:38)
--- NOTE | 2019-10-03 08:04 | Surgery Progress Note ---
Date of Service October 03, 2019 Subjective POD#2 doing well plans to be discharged passing gas tolerating diet Physical Exam Constitutional: WD/WN, vitals as above comfortable incision c/d/i no pain no edema neg Ranjit's for d/c f/u in 1 week Results & Data Vital Signs (Past 12 Hours) Vital Signs Temp Pulse Resp BP 10/03/19 00:15 36.7 C 91 H 18 111/74 Laboratory Results Laboratory Results - last 72 hr 09/30/19 10/01/19 10/02/19 15:24 19:54 06:17 WBC 11.91 H 13.97 H 10.69 RBC 3.89 L 3.73 L 3.01 L Hgb 11.8 L 11.4 L 9.4 L Hct 35.7 L 33.6 L 27.5 L MCV 91.8 90.1 91.4 MCH 30.3 30.6 31.2 MCHC 33.1 33.9 34.2 RDW Std Deviation 45.8 45.9 46.2 RDW Coeff of Sergio 13.9 13.9 13.9 Plt Count 191 159 145 MPV 10.3 10.5 H 9.8 Immature Gran % (Auto) 0.4 0.4 Neut % (Auto) 80.1 77.9 Lymph % (Auto) 12.4 14.1 [place] % (Auto) 6.4 7.0 Eos % (Auto) 0.6 0.5 Baso % (Auto) 0.1 0.1 Neut # (Auto) 11.19 H 8.33 H Lymph # (Auto) 1.73 1.51 [place] # (Auto) 0.90 H 0.75 H Eos # (Auto) 0.09 0.05 Baso # (Auto) 0.01 0.01 Immature Gran # (Auto) 0.05 H 0.04 H 10/03/19 06:16 WBC RBC Hgb 9.1 L Hct 27.3 L MCV MCH MCHC RDW Std Deviation RDW Coeff of Sergio Plt Count MPV Immature Gran % (Auto) Neut % (Auto) Lymph % (Auto) [place] % (Auto) Eos % (Auto) Baso % (Auto) Neut # (Auto) Lymph # (Auto) [place] # (Auto) Eos # (Auto) Baso # (Auto) Immature Gran # (Auto)
[2019-10-03] MEDS ORDERED: bisacodyL 10 MG SUPP PR PRN (21:35)
--- NOTE | 2019-10-15 14:22 | Discharge Summary (DS) ---
The patient is a 28-year-old 1, para 1. She was admitted in labor. She had ruptured membranes. We did an attempt at induction on her. She had multiple meds for induction. She ended up with an arrest of labor for hours at 3 cm and ruptured membranes for over 36 hours. She had been beta strep positive and was receiving antibiotics, and basically, she was diagnosed with arrest of labor secondary to cephalopelvic disproportion. She underwent a primary low segment section. Her preoperative hemoglobin was 11.8. Postoperatively, it fell to 9.1. Postoperatively, she did well. We did give her Mefoxin prophylactically prior to surgery in addition to her medications for her strep and she did well. Her bowel sounds returned promptly. Her temperature remained afebrile and on 10/02, she was discharged to be followed in home and office, given usual pain medication and was told to return to the [facility] office for removal of edwige.
== END 2019-10-03 15:02 | disposition home or self-care (01) | DRG 788 ==
LOC: OPB 13:34 → 4S1 13:35 → 4S2 10-02 00:33